=== PATIENT | female | born 1960 | race Caucasian/White ===

== ENCOUNTER 2017-09-15 12:58 | Emergency (ER) | payer OTHER, BC | END 2017-09-15 14:34 | disposition home or self-care (01) | LOC: FTE 12:58 → E/R 14:34 | DX: S63.615A Unspecified sprain of left ring finger, initial encounter (principal); W23.1XXA Caught, crushed, jammed, or pinched between stationary objects, initial encounter; Y92.239 Unspecified place in hospital as the place of occurrence of the external cause | CPT/HCPCS: 73130; 73130-LT; 99283-25 ==